=== PATIENT | female | born 2000 | race African-American/Black ===

== ENCOUNTER 2019-12-07 00:58 | Emergency (ER) | payer OTHER ==
[~2019-12-07] VITALS: Ht 144.8 cm; Wt 52.2 kg
[2019-12-07 01:20] LABS: URINE BILIRUBIN NEGATIVE (Negative); URINE BLOOD TRACE (Negative); URINE CLARITY CLEAR; URINE COLOR YELLOW; URINE GLUCOSE-RANDOM* NEGATIVE (Negative); URINE KETONES NEGATIVE (Negative); URINE NITRITE-REFLEX NEGATIVE (Negative); URINE PROTEIN (DIPSTICK) NEGATIVE (Negative); URINE SPECIFIC GRAVITY 1.025 (1.005-1.035); URINE UROBILINOGEN 0.2 E.U./dl (0.2-1.0)
[2019-12-07 01:21] LABS: URINE LEUKOCYTES-REFLEX 3+ (Negative)
[2019-12-07 01:26] LABS: CASTS None Seen /LPF (None Seen); CRYSTALS None Seen /LPF (None Seen); MUCUS 0-3 Light strn/LPF (None Seen); SQUAMOUS 4-10 Moderate /LPF (0-3); URINE RBC 0-2 Rare /HPF (0-2)
[2019-12-07] MEDS ORDERED: KEFLEX500 M1 PO (02:39)
[2019-12-07 02:45] VITALS: BP 111/51
== END 2019-12-07 02:46 | disposition home or self-care (01) ==
LOC: ER 00:58
PROVIDERS: Emergency Medicine
DX: N89.8 Other specified noninflammatory disorders of vagina (principal); N39.0 Urinary tract infection, site not specified